=== PATIENT | female | born 1960 | race Caucasian/White ===

== ENCOUNTER 2017-02-09 13:04 | Emergency (ER) | payer MEDICAID ==
[~2017-02-09] VITALS: Ht 160 cm; Wt 90.0 kg
[2017-02-09 13:09] VITALS: BP 153/78; PULSE 115; RESP 25; TEMP 98.6; O2SAT 99
[2017-02-09] MEDS ORDERED: OMEP40CA2 PO (14:17)
[2017-02-09] MEDS ORDERED: ALPR.25 PO (14:17)
[2017-02-09] MEDS ORDERED: TOPI1TAB36 PO (14:17)
[2017-02-09] MEDS ORDERED: BUSP10TA PO (14:18)
[2017-02-09] MEDS ORDERED: VENL75TA PO (14:18)
[2017-02-09] MEDS ORDERED: ACETAMINOPHEN/HYDROcodone 325 MG/5 MG TAB PO ONE (14:30)
[2017-02-09] MEDS ORDERED: KETOROLAC TROMETHAMINE 60 MG/2 ML (IM) VIAL IM ONE (14:30)
--- NOTE | 2017-02-09 15:23 | RADRPT ---
EXAM DATE/TIME: 02/09/2017 14:46 [place] COMPARISON: No previous studies available for comparison. INDICATIONS : Left shoulder pain MEDICAL HISTORY : None. SURGICAL HISTORY : None. ENCOUNTER: Initial ACUITY: 1 day PAIN SCORE: 9/10 LOCATION: Left upper extremity FINDINGS: There is a minimally displaced surgical neck fracture of the left humerus. Other bones of the left sh oulder are intact. CONCLUSION: Acute surgical neck fracture of the left humerus with minimal displacement. Javi Troncoso MD on February 09, 2017 at 15:21 Board Certified Radiologist. This report was verified electronically.
[2017-02-09] MEDS ORDERED: HYDR-3533 PO (15:27)
--- NOTE | 2017-02-09 15:35 | PD ---
HPI Chief Complaint: Fall Time Seen by Provider: 15:00 Travel History International Travel<30 days: No Contact w/Intl Traveler<30days: No Traveled to known affect area: No History of Present Illness HPI 56-year-old female transferred from status post fall on the [facility] earlier today. Patient states it's her last stay here after 7 day visit from [facility]. She was getting ready to go when she tripped and fell forward and tried to catch herself with her left arm. She is now here with a sling applied by EMS, who recommended she follow up here. Patient did come in by POV. She denies hitting her head or loss of consciousness. She has no neck pain. She has no numbness or tingling in the elbow, wrist, or hand on the left side. She is complaining of 9 out of 10 pain in the left upper arm and shoulder. She denies any other injury. She is allergic to Cipro. PFSH Past Medical History Asthma: Yes Anxiety: Yes Diabetes: Yes Patient Takes Glucophage: No Migraines: Yes Dilation and Curettage (D&C): Yes Tubal Ligation: Yes Past Surgical History Other Surgery: Yes (gastric bypass) Social History Alcohol Use: No Tobacco Use: No Substance Use: No Allergies-Medications (Allergen,Severity, Reaction): Coded Allergies: Cipro (Verified Allergy, Unknown, 02/09/17) Reported Meds & Prescriptions Reported Meds & Active Scripts Active Lortab (Hydrocodone-Acetaminophen) 5-325 Mg Tab 1-2 Tab PO Q6H PRN Reported Effexor (Venlafaxine HCl) 75 Mg Tab 75 Mg PO Q8H Buspirone (Buspirone HCl) 10 Mg Tab 10 Mg PO TID Omeprazole 40 Mg Cap 40 Mg PO DAILY Topiramate 50 Mg Tab 50 Mg PO DAILY Xanax (Alprazolam) 0.25 Mg Tab 0.25 Mg PO Q4H PRN Review of Systems Except as stated in HPI: all other systems reviewed are Neg General / Constitutional: No: Fever Eyes: No: Visual changes HENT: No: Headaches Cardiovascular: No: Chest Pain or Discomfort Respiratory: No: Shortness of Breath Gastrointestinal: No: Abdominal Pain Genitourinary: No: Dysuria Musculoskeletal: Positive: Arthralgias, Limited ROM, Pain Skin: No Rash Neurologic: No: Weakness Psychiatric: No: Depression Endocrine: No: Polydipsia Hematologic/Lymphatic: No: Easy Bruising Physical Exam Narrative GENERAL: Patient appears in mild distress. SKIN: Warm and dry. Normal color. Normal turgor. No abrasions. No lacerations. HEAD: Atraumatic. Normocephalic. Nontender. EYES: Pupils equal and round. No scleral icterus. No injection or drainage. ENT: No nasal bleeding or discharge. Mucous membranes pink and moist. No dental injury. Pharynx is clear. Airway is patent. NECK: Trachea midline. No bony tenderness or step-off. Range of motion is full and nontender. CARDIOVASCULAR: Regular rate and rhythm. RESPIRATORY: No accessory muscle use. Clear to auscultation. Breath sounds equal bilaterally. GASTROINTESTINAL: Abdomen soft, non-tender, nondistended. Hepatic and splenic margins not palpable. MUSCULOSKELETAL: Extremities without clubbing, cyanosis, or edema. No obvious deformities. Patient has normal cleaner housekeeping strength in the left arm as well as ability to supinate and pronate the wrist. Left shoulder exam is limited secondary to patient's pain. She has localized tenderness to the proximal humerus, without tenderness to the scapula or clavicle at this time. NEUROLOGICAL: Awake and alert. No obvious cranial nerve deficits. Motor grossly within normal limits. Five out of 5 muscle strength in the arms and legs. Normal speech. PSYCHIATRIC: Appropriate mood and affect; insight and judgment normal. Data Data Last Documented VS Vital Signs Date Time Temp Pulse Resp B/P Pulse Ox O2 Delivery O2 Flow Rate FiO2 02/09/17 13:09 98.6 115 25 153/78 99 Orders Ice/Cold Pack (02/09/17 14:22) Ketorolac Inj (Toradol Inj) (02/09/17 14:30) Acetamin-Hydrocod 325-5 Mg ([place] 5-325 (02/09/17 14:30) Shoulder, Limited(2vws) (02/09/17 14:22) Splint Or Brace Apply/Monitor (02/09/17 15:21) MDM Medical Decision Making Medical Screen Exam Complete: Yes Emergency Medical Condition: Yes Differential Diagnosis Trip and fall. Left shoulder sprain. Left shoulder fracture. Narrative Course Patient is mentally stable at time of exam. Patient is given Toradol 60 mg IM as well as Lortab 5/325 by mouth. X-ray of the left shoulder is obtained. X-ray shows a proximal humeral fracture without significant dislocation. Patient is placed in a sling with shoulder immobilizer. She is discharged home with Lortab 5/325 one to 2 tabs every 6 hours #20. She is to use ice to the area frequently. She is to wear the sling and shoulder immobilizer at all times as discussed. She is to follow with her primary care physician and orthopedist as discussed. Diagnosis Primary Impression: Fracture of humerus, proximal, left, closed Qualified Code: S42.295A - Other closed nondisplaced fracture of proximal end of left humerus, initial encounter Referrals: Orthopedist Primary Care Physician Patient Instructions: General Instructions, How to Use a Sling (GEN), Proximal Humerus Fracture (ED) Additional Instructions: X-ray shows a proximal humeral fracture without significant dislocation. Patient is placed in a sling with shoulder immobilizer. She is discharged home with Lortab 5/325 one to 2 tabs every 6 hours #20. She is to use ice to the area frequently. She is to wear the sling and shoulder immobilizer at all times as discussed. She is to follow with her primary care physician and orthopedist as discussed. Med/Other Pt SpecificInfo: Prescription(s) given Scripts Hydrocodone-Acetaminophen (Lortab)5-325 Mg Tab1-2 Tab PO Q6H PRN (PAIN) #20 TAB Prov:Juan House MD 02/09/17 Disposition: 01 DISCHARGE HOME Condition: Stable Kj Mcallister Feb 09, 2017 15:35
== END 2017-02-09 16:36 | disposition home or self-care (01) ==
LOC: NEPD 13:04
DX: S42.295A Other nondisplaced fracture of upper end of left humerus, initial encounter for closed fracture (principal); W01.0XXA Fall on same level from slipping, tripping and stumbling without subsequent striking against object, initial encounter; E11.9 Type 2 diabetes mellitus without complications
CPT/HCPCS: 29240; 73030; 96372; 99284; J1885